=== PATIENT | female | born 1950 | race Caucasian/White ===

== ENCOUNTER 2024-01-09 18:12 | Observation (INO) | payer OTHER, BC, MEDICARE ==
[~2024-01-09] VITALS: Ht 154.9 cm; Wt 37.5 kg
[2024-01-09 19:02] LABS: BASOPHILS ABSOLUTE AUTO 0.05 K/mm3 (0.00-0.23); BASOPHILS PERCENT AUTO 1 % (0-2); EOSINOPHILS ABSOLUTE AUTO 0.08 K/mm3 (0.00-0.68); EOSINOPHILS PERCENT AUTO 1 % (0-6); Hematocrit 37.3 % (33.0-51.0); Hemoglobin 11.6 g/dL (11.5-16.0); IMMATURE GRAN ABSOLUTE AUTO 0.02 K/mm3 (0.00-0.10); IMMATURE GRAN PERCENT AUTO 0 % (0-1); LYMPHOCYTES ABSOLUTE AUTO 1.85 K/mm3 (0.84-5.20); LYMPHOCYTES PERCENT AUTO 21 % (21-46); MONOCYTES ABSOLUTE AUTO 0.73 K/mm3 (0.16-1.47); MONOCYTES PERCENT AUTO 8 % (4-13); Mean Corpuscular HGB 30.1 pg (26.0-34.0); Mean Corpuscular HGB Conc 31.1 g/dL (31.5-36.5); Mean Corpuscular Volume 97 fL (80-100); Mean Platelet Volume 11.6 fL (9.1-12.4); NEUTROPHILS ABSOLUTE AUTO 6.04 K/mm3 (1.96-9.15); NEUTROPHILS PERCENT AUTO 69 % (41-73); Platelet Count 220 K/mm3 (150-400); RDW Coefficient Variation 14.4 % (11.7-14.2); RDW Standard Deviation 51.6 fL (35.1-46.3); Red Blood Cell Count 3.86 M/mm3 (3.80-5.20); White Blood Cell Count 8.77 K/mm3 (4.00-11.30)
[2024-01-09] MEDS ORDERED: CYCL10 PO (19:10)
[2024-01-09] MEDS ORDERED: OMEP20ER PO (19:11)
[2024-01-09] MEDS ORDERED: HYOS.125 PO (19:12)
[2024-01-09 19:24] LABS: Albumin, Blood 2.4 g/dL (3.4-5.0); Albumin/Globulin Ratio 0.7 (0.8-1.8); Bilirubin, Total 0.3 mg/dL (0.1-1.0); Bun/Creatinine Ratio 28.3 (12.0-20.0); Calcium, Blood 8.1 mg/dL (8.5-10.1); Creatinine, Blood 0.5 mg/dL (0.40-1.00); Globulin, Blood 3.6 g/dL (2.2-4.0); Potassium, Blood 3.9 mmol/L (3.5-5.5)
[2024-01-09] MEDS ORDERED: NS 1,000 ML IV SCH (19:25)
[2024-01-09 19:53] LABS: Source, Urine Straight Cath
[2024-01-09 19:55] LABS: Magnesium, Blood 2.1 mg/dL (1.6-2.4)
[2024-01-09 19:57] LABS: Appearance, Urine Hazy (Clear); Bilirubin, Urine Neg (Neg); Blood, Urine 2+ (Neg); Color, Urine Yellow (P-Yellow); Glucose Qualitative, Urine Neg (Neg); Ketones, Urine Neg (Neg); Leukocyte Esterase, Urine 1+ (Neg); Nitrite, Urine Neg (Neg); Protein, Urine 1+ (Neg); Specific Gravity, Urine 1.015 (1.003-1.022); Urobilinogen, Urine 2+ (Normal)
[2024-01-09 20:03] LABS: Amorphous Mod (0-Heavy); Bacteria Many /hpf; Squamous Epithelial Cells Few /hpf (Few)
[2024-01-09] MEDS ORDERED: Acetaminophen650 M1 PO (21:40)
[2024-01-09] MEDS ORDERED: BISA5EC PO (21:40)
[2024-01-09] MEDS ORDERED: Ondansetron HCl 2 MG / ML 2ML Vial IV PRN (22:10)
[2024-01-09] MEDS ORDERED: Acetaminophen 325 MG TABLET PO PRN (22:15)
[2024-01-09] MEDS ORDERED: CefTRIAXone Sodium 1,000 MG in NS 100 ML IV SCH (22:21)
[2024-01-10 00:30] VITALS: BP 141/93
[2024-01-10 03:56] VITALS: BP 149/95
[2024-01-10] MEDS ORDERED: NS 1,000 ML IV ONE (04:10)
[2024-01-10] MEDS ORDERED: Cyclobenzaprine HCl 10 MG Tab PO PRN (06:15)
[2024-01-10] MEDS ORDERED: Hyoscyamine Sulfate 0.125 MG Tab PO PRN (06:15)
[2024-01-10] MEDS ORDERED: Bisacodyl 5 MG TabEC PO SCH (06:20)
[2024-01-10 07:38] VITALS: BP 145/81
[2024-01-10 15:26] VITALS: BP 139/80
[2024-01-10 20:17] VITALS: BP 125/90
[2024-01-11 02:19] VITALS: BP 153/95
[2024-01-11] MEDS ORDERED: Omeprazole 20 MG CapCR PO SCH (06:00)
[2024-01-11 07:12] VITALS: BP 147/95
[2024-01-11 15:50] VITALS: BP 131/89
[2024-01-11 19:20] VITALS: BP 105/70
[2024-01-12 05:39] VITALS: BP 149/100
[2024-01-12 07:58] VITALS: BP 129/84
[2024-01-12 12:33] LABS: Influenza A, PCR NEGATIVE (NEGATIVE); Influenza B, PCR NEGATIVE (NEGATIVE); Resp Syncytial Virus, PCR NEGATIVE (NEGATIVE); SARS-Cov-2 (COVID-19) PCR, MMC NEGATIVE (NEGATIVE)
[2024-01-12] MEDS ORDERED: LORA2L PO (16:17)
[2024-01-12] MEDS ORDERED: MORP20L PO (16:17)
== END 2024-01-12 18:33 ==
LOC: ER 18:12 → MEDS 18:13
PROVIDERS: Emergency Medicine; Internal Medicine; Physician Assistant; ADMIT Internal Medicine
DX: G20.A1 Parkinson's disease without dyskinesia, without mention of fluctuations (principal); R62.7 Adult failure to thrive; Z66 Do not resuscitate
CPT/HCPCS: 0241U; 51701; 80053; 81001; 83735; 85025; 87086; 96361-59; 96365-59; 99285-25; A9270; G0378; J0696; J7030